=== PATIENT | female | born 1950 | race Caucasian/White ===

== ENCOUNTER 2024-02-18 06:30 | Outpatient (RCR) | payer MEDICARE, OTHER, SELFPAY | END 2024-03-19 23:59 | disposition home or self-care (01) | LOC: MPT 06:30 | PROVIDERS: Visit Provider Family Medicine | DX: M77.8 Other enthesopathies, not elsewhere classified (principal); M47.812 Spondylosis without myelopathy or radiculopathy, cervical region | CPT/HCPCS: 97110; 97140; 97162; G0283 ==

== ENCOUNTER 2024-03-20 06:00 | Outpatient (RCR) | payer MEDICARE, OTHER, SELFPAY | END 2024-04-16 23:59 | disposition home or self-care (01) | LOC: MPT 06:00 | PROVIDERS: Visit Provider Family Medicine | DX: M77.8 Other enthesopathies, not elsewhere classified (principal); M47.812 Spondylosis without myelopathy or radiculopathy, cervical region | CPT/HCPCS: 97110; 97140; G0283 ==

== ENCOUNTER 2024-04-16 10:12 | Outpatient (CLI) | payer MEDICARE, OTHER, SELFPAY ==
--- NOTE | 2024-04-16 10:15 | XR_ITS ---
WS: [id number] Cervical spine, 3 views, 04/16/2024 Clinical Data: neck and shoulder pain Comparison: None. Findings: No compression fractures are seen. The vertebral bodies C4-C6 show spurring. There is disc narrowing at C5-C6. There is no prevertebral soft tissue swelling. The odontoid is unremarkable. The soft tissues of the neck and the lung apices are normal. XR/XR cervical spine 3V* [id number] Impression: 1. Osteoarthritis C4-C6. 2. Disc narrowing at C5-C6.
== END 2024-04-16 10:13 | disposition home or self-care (01) ==
LOC: RAD 10:14
PROVIDERS: PCP Family Medicine; Visit Provider Family Medicine
DX: M47.812 Spondylosis without myelopathy or radiculopathy, cervical region (principal)
CPT/HCPCS: 72040

== ENCOUNTER → 2024-05-14 11:10 | Outpatient (BNVA) | payer MEDICARE, OTHER, SELFPAY | PROVIDERS: PCP Family Medicine; Visit Provider Family Medicine | DX: E11.9 Type 2 diabetes mellitus without complications (principal); I10 Essential (primary) hypertension; E78.2 Mixed hyperlipidemia; K21.9 Gastro-esophageal reflux disease without esophagitis | CPT/HCPCS: 82043; 82607; 83036; 84443; 85025 ==

== ENCOUNTER 2024-11-10 10:14 | Outpatient (CLI) | payer MEDICARE, OTHER, SELFPAY ==
--- NOTE | 2024-11-10 11:00 | FL_ITS ---
WS: [id number] Exam: FL barium swallow modifd [id number] Date/Time of Exam: 11/10/2024 10:33 AM Reason For Exam: Fluoroscopy time: 4min [id number] minutes # of spot films: Modified barium swallow test was performed in conjunction with the speech therapy service. Oropharyngeal phase of swallowing was normal. The patient tolerated all consistencies of barium mixture foodstuffs without penetration or aspiration. The patient ingested a barium tablet without difficulty. The tablet was retained in the midesophagus but was propelled into the stomach with additional ingestion of thin liquid barium. FL/FL barium swallow modifd [id number] IMPRESSION: 1. No aspiration or penetration. See above discussion. 2. A separate report with recommendations will follow from the speech therapy s em.
== END 2024-11-10 10:15 | disposition home or self-care (01) ==
LOC: RAD 10:17
PROVIDERS: PCP Family Medicine; Visit Provider Family Medicine
DX: R13.12 Dysphagia, oropharyngeal phase (principal)
CPT/HCPCS: 74230; 92611

== ENCOUNTER → 2024-11-22 13:46 | Outpatient (BNVA) | payer MEDICARE, OTHER, SELFPAY | PROVIDERS: PCP Family Medicine; Visit Provider Family Medicine | DX: E78.2 Mixed hyperlipidemia (principal); R53.81 Other malaise; R53.83 Other fatigue | CPT/HCPCS: 80053; 84439; 84443; 85025 ==

== ENCOUNTER → 2024-12-13 10:47 | Outpatient (BNVA) | payer MEDICARE, OTHER, SELFPAY | PROVIDERS: PCP Family Medicine; Visit Provider Family Medicine | DX: Z11.59 Encounter for screening for other viral diseases (principal); E11.9 Type 2 diabetes mellitus without complications; I10 Essential (primary) hypertension; E78.2 Mixed hyperlipidemia | CPT/HCPCS: 80061; 83036; 86803 ==